=== PATIENT | female | born 1955 | race African-American/Black ===

== ENCOUNTER 2021-08-03 09:07 | Observation (INO) ==
[2021-08-03] MEDS ORDERED: SODIUM CHLORIDE 0.9% 500 ML IV STA ×2 (09:15→10:38)
[2021-08-03 09:45] LABS: Basophils % 1.1 % (0.0-0.8); Eosinophils # 0.1 10*3/uL (0.0-0.87); Eosinophils % 2.7 % (0.00-10.9); Hematocrit 32.4 VOL% (35.7-47.0); Hemoglobin 9.8 GM/DL (12.0-16.0); Immature Granulocytes % 0.3 %; Immature Granulocytes Absolute 0.01 #; Lymphocytes # 1.2 10*3/uL (1.4-4.0); Lymphocytes % 30.7 % (21.3-54.2); Mean Corpuscular HGB Conc 30.2 GM/DL (32-36); Mean Corpuscular Volume 84.4 FL (87-102); Mean Platelet Volume 10.3 FL (9.6-12.0); Monocytes # 0.3 10*3/uL (0.11-0.8); Monocytes % 6.9 % (1.7-12.7); Neutrophils % 58.3 % (38.7-73.9); Platelet Count 277 T/CUMM (130-400); Red Blood Count 3.84 MC/CUMM (3.8-5.5); Red Cell Distribution Width 15.6 % (9.3-17.3); White Blood Count 3.8 T/CUMM (4-12)
[2021-08-03 10:14] LABS: Barbiturates Screen,Urine Negative (Negative); Benzodiazepines Screen,Urine Negative (Negative); Cannabinoid Screen,Urine Negative (Negative); Opiate Screen,Urine Negative (Negative); Phencyclidine Screen,Urine Negative (Negative)
[2021-08-03 10:21] LABS: Alanine Aminotransferase 24 U/L (13-56); Albumin 3.5 G/DL (3.4-5.0); Alkaline Phosphatase 67 U/L (45-117); Aspartate Amino Transferase 27 U/L (0-37); Bilirubin,Total < 0.39 MG/DL (0.20-1.00); Blood Urea Nitrogen 14 MG/DL (7-18); Calcium 9.1 MG/DL (8.5-10.1); Carbon Dioxide 28 MMOL/L (21-32); Chloride 105 MMOL/L (98-107); Estimated Glom Filtration Rate 68 ML/MIN; Glucose 80 MG/DL (74-106); Osmolality,Calculated 278.4 MOS/KG (273-304); Potassium 4.1 MMOL/L (3.5-5.1); Sodium 140 MMOL/L (136-145); Total Protein 7.1 G/DL (6.4-8.2)
[2021-08-03] MEDS ORDERED: ONDANSETRON 4 MG/2 ML VIAL IV PRN (10:30)
[2021-08-03] MEDS ORDERED: POTASSIUM CHLORIDE 20 MEQ TABLET PO PRN (10:30)
[2021-08-03] MEDS ORDERED: MAGNESIUM SULF RIDER 4 GM/100 ML PREMIX IV PRN (10:30)
[2021-08-03] MEDS ORDERED: diphenhydrAMINE CAP 25 MG CAPSULE PO PRN (10:30)
[2021-08-03] MEDS ORDERED: ACETAMINOPHEN 325 MG TABLET PO PRN (10:30)
[2021-08-03] MEDS ORDERED: guaiFENesin/DM ER 600-30 MG TABLET PO PRN (10:30)
[2021-08-03] MEDS ORDERED: DOCUSATE SODIUM 100 MG CAPSULE PO PRN (10:30)
[2021-08-03] MEDS ORDERED: hydrALAZINE 20 MG/1 ML VIAL IV PRN (10:30)
[2021-08-03] MEDS ORDERED: ALUMINUM/MAGNES/SIMETH MAX STR 30 ML UDCUP PO PRN (10:30)
[2021-08-03] MEDS ORDERED: MAGNESIUM SULF RIDER 2 GM/50 ML PREMIX IV PRN (10:30)
[2021-08-03] MEDS ORDERED: PROMETHAZINE 25 MG TABLET PO PRN (10:30)
[2021-08-03] MEDS ORDERED: ZALEPLON 5 MG CAPSULE PO PRN (10:30)
[2021-08-03] MEDS ORDERED: ATROPINE 1 MG/10 ML SYRINGE IV STA (10:38)
[2021-08-04 07:14] LABS: Risk Ratio 2.4; VLDL Cholesterol 16.8 MG/DL
[2021-08-04] MEDS ORDERED: PANTOPRAZOLE 40 MG TABLET PO SCH (09:00)
[2021-08-04 10:16] VITALS: BP 117/58
== END 2021-08-04 10:45 | disposition home or self-care (01) ==
LOC: N.ED 09:07 → N.EDINP 09:07 → N.TELEN 08-04 03:27
PROVIDERS: ADMIT Internal Medicine Cardiovascular Disease; ATTEND Internal Medicine Cardiovascular Disease